=== PATIENT | female | born 1950 | race American Indian/Alaskan Native ===

== ENCOUNTER 2020-06-02 08:49 | Observation (INO) | payer MEDICARE ==
--- NOTE | 2020-06-02 08:54 | Emergency Department Report ---
ED General Adult HPI - General Stated complaint: DIALYSIS ACCESS BLEED Time Seen by Provider: 06/02/20 08:52 - History of Present Illness Initial comments: Patient is a 62-year-old female with history of diabetes and end-stage renal disease on dialysis presents to emergency department for evaluation of 1 hour of bleeding from AV fistula. Patient presents with tourniquet to left upper arm and medics holding pressure, patient losing consciousness on arrival. Patient consequently required my immediate attention. - Related Data Allergies Allergy/AdvReac Type Severity Reaction Status Date / Time iodine Allergy Unknown Verified 06/02/20 11:42 ED Review of Systems ROS: Stated complaint: DIALYSIS ACCESS BLEED Other details as noted in HPI Comment: Unobtainable due to pts medical conditions ED Past Medical Hx - Past Medical History Hx Diabetes: Yes Hx Renal Disease: Yes ED Physical Exam - General Limitations: Altered Mental Status General appearance: lethargic - Head Head exam: Present: atraumatic - Eye Eye exam: Present: normal appearance - ENT ENT exam: Present: normal exam - Neck Neck exam: Present: normal inspection - Respiratory Respiratory exam: Present: normal lung sounds bilaterally - Cardiovascular Cardiovascular Exam: Present: regular rate, other (Hypotensive) - GI/Abdominal GI/Abdominal exam: Present: soft - Rectal Rectal exam: Present: deferred - Extremities Exam Extremities exam: Present: other (Severe bleeding from left AV fistula, dressing in place with pressure held by medics) - Neurological Exam Neurological exam: Present: other (Lethargic) - Psychiatric Psychiatric exam: Present: other (Lethargic) - Skin Skin exam: Present: warm ED Course Vital Signs 06/02/20 06/02/20 06/02/20 08:49 12:31 12:32 Temperature 97.6 F Pulse Rate 69 70 72 Respiratory 12 18 Rate Blood Pressure 96/41 123/55 Blood Pressure 135/62 [Left] O2 Sat by Pulse 100 99 Oximetry 06/02/20 06/02/20 06/02/20 12:46 12:51 13:13 Temperature 97.6 F 98.1 F 97.6 F Pulse Rate 72 70 73 Respiratory 18 18 18 Rate Blood Pressure 134/39 143/61 143/34 Blood Pressure [Left] O2 Sat by Pulse 100 99 100 Oximetry 06/02/20 13:28 Temperature 97.6 F Pulse Rate 70 Respiratory 18 Rate Blood Pressure 159/51 Blood Pressure [Left] O2 Sat by Pulse 100 Oximetry - Reevaluation(s) Reevaluation #1: Pressure dressing immediately applied with Ben wrap, tourniquet left in place, vascular surgery on-call paged immediately. 06/02/20 08:53 Reevaluation #2: 06/02/20 09:00 Ultrasound-guided IV placed in the right antecubital fossa by me. Reevaluation #3: 06/02/20 13:43 Dr. Dao, vascular on-call, calls back at 9:44, states patient is not stable for the OR as labwork is not back, suggests patient be transfused with blood. Repeatedly expresses concern that patient may be hyperkalemic requiring dialysis prior to AV fistula repair. Is again alerted to patient's hemodynamic instability in the context of AV fistula hemorrhage, is alerted to patient having active tourniquet to left arm, states patient needs potassium value and will go to dialysis with tourniquet in place if necessary. Reevaluation #4: 06/02/20 12:00 Patient consented for transfusion of PRBC, FFP; IV Vitamin K ordered. Prior to transfusion, Dr. Dao arrives in ER, and states patient should be brought to OR prior to transfusion. Patient leaves ER for OR at 13:45. - Central Line Placement Right Femoral Consent Obtained: verbal consent, emergent situation Time Out Performed: Yes Patient Placed on Monitor/Pulse Ox: Yes MD Prep: mask, gown, gloves Central Line Prep: Chlorhexidine scrub Local Anesthesia Used: Lidocaine 1% Ultrasound Used for Placement: Yes Central Line Lumen Inserted: triple Central Line Position: good blood return, all ports aspirated, flus, sutured in place with nyl Dressing Applied: Tegaderm Patient Tolerated Procedure: well Complications: none ED Medical Decision Making - Lab Data Result diagrams: 06/02/20 10:23 06/02/20 10:23 Lab Results 06/02/20 06/02/20 06/02/20 Range/Units 10:23 10:23 10:23 WBC 5.7 (4.5-11.0) K/mm3 RBC 2.08 L (3.65-5.03) M/mm3 Hgb 6.8 L (10.1-14.3) gm/dl Hct 20.6 L (30.3-42.9) % MCV 99 H (79-97) fl MCH 33 H (28-32) pg MCHC 33 (30-34) % RDW 17.4 H (13.2-15.2) % Plt Count 120 L (140-440) K/mm3 Lymph % (Auto) 22.0 (13.4-35.0) % [place] % (Auto) 6.5 (0.0-7.3) % Eos % (Auto) 1.7 (0.0-4.3) % Baso % (Auto) 0.8 (0.0-1.8) % Lymph # (Auto) 1.2 (1.2-5.4) K/mm3 [place] # (Auto) 0.4 (0.0-0.8) K/mm3 Eos # (Auto) 0.1 (0.0-0.4) K/mm3 Baso # (Auto) 0.0 (0.0-0.1) K/mm3 Seg Neutrophils % 69.0 (40.0-70.0) % Seg Neutrophils # 3.9 (1.8-7.7) K/mm3 PT 31.9 H (12.2-14.9) Sec. INR 3.07 H (0.87-1.13) Sodium 140 (137-145) mmol/L Potassium 4.4 (3.6-5.0) mmol/L Chloride 102.9 (98-107) mmol/L Carbon Dioxide 30 (22-30) mmol/L Anion Gap 12 mmol/L BUN 29 H (7-17) mg/dL Creatinine 6.9 H (0.6-1.2) mg/dL Estimated GFR 6 ml/min BUN/Creatinine Ratio 4 % Glucose 139 H (65-100) mg/dL Calcium 7.2 L (8.4-10.2) mg/dL Blood Type Antibody Screen Crossmatch 06/02/20 Range/Units 10:23 WBC (4.5-11.0) K/mm3 RBC (3.65-5.03) M/mm3 Hgb (10.1-14.3) gm/dl Hct (30.3-42.9) % MCV (79-97) fl MCH (28-32) pg MCHC (30-34) % RDW (13.2-15.2) % Plt Count (140-440) K/mm3 Lymph % (Auto) (13.4-35.0) % [place] % (Auto) (0.0-7.3) % Eos % (Auto) (0.0-4.3) % Baso % (Auto) (0.0-1.8) % Lymph # (Auto) (1.2-5.4) K/mm3 [place] # (Auto) (0.0-0.8) K/mm3 Eos # (Auto) (0.0-0.4) K/mm3 Baso # (Auto) (0.0-0.1) K/mm3 Seg Neutrophils % (40.0-70.0) % Seg Neutrophils # (1.8-7.7) K/mm3 PT (12.2-14.9) Sec. INR (0.87-1.13) Sodium (137-145) mmol/L Potassium (3.6-5.0) mmol/L Chloride (98-107) mmol/L Carbon Dioxide (22-30) mmol/L Anion Gap mmol/L BUN (7-17) mg/dL Creatinine (0.6-1.2) mg/dL Estimated GFR ml/min BUN/Creatinine Ratio % Glucose (65-100) mg/dL Calcium (8.4-10.2) mg/dL Blood Type O POSITIVE Antibody Screen Negative Crossmatch See Detail Vital Signs 06/02/20 06/02/20 06/02/20 08:49 12:31 12:32 Temperature 97.6 F Pulse Rate 69 70 72 Respiratory 12 18 Rate Blood Pressure 96/41 123/55 Blood Pressure 135/62 [Left] O2 Sat by Pulse 100 99 Oximetry 06/02/20 06/02/20 06/02/20 12:46 12:51 13:13 Temperature 97.6 F 98.1 F 97.6 F Pulse Rate 72 70 73 Respiratory 18 18 18 Rate Blood Pressure 134/39 143/61 143/34 Blood Pressure [Left] O2 Sat by Pulse 100 99 100 Oximetry 06/02/20 13:28 Temperature 97.6 F Pulse Rate 70 Respiratory 18 Rate Blood Pressure 159/51 Blood Pressure [Left] O2 Sat by Pulse 100 Oximetry Critical Care Time: Yes Critical care time in (mins) excluding proc time.: 35 Critical care attestation.: If time is entered above; I have spent that time in minutes in the direct care of this critically ill patient, excluding procedure time. ED Disposition Clinical Impression: Hemorrhage of arteriovenous fistula Disposition: DC-09 OP ADMIT IP TO THIS HOSP Is pt being admited?: Yes Condition: Fair
[2020-06-02 10:35] LABS: Basophils % (Auto) 0.8 % (0.0-1.8); Eosinophils # (Auto) 0.1 K/mm3 (0.0-0.4); Eosinophils % (Auto) 1.7 % (0.0-4.3); Hematocrit 20.6 % (30.3-42.9); Hemoglobin 6.8 gm/dl (10.1-14.3); Lymphocytes # (Auto) 1.2 K/mm3 (1.2-5.4); Mean Corpuscular HGB Conc 33 % (30-34); Mean Corpuscular Volume 99 fl (79-97); Monocytes # (Auto) 0.4 K/mm3 (0.0-0.8); Monocytes % (Auto) 6.5 % (0.0-7.3); Platelet Count 120 K/mm3 (140-440); Red Blood Count 2.08 M/mm3 (3.65-5.03); Red Cell Distribution Width 17.4 % (13.2-15.2)
[2020-06-02 10:44] LABS: INR 3.07 (0.87-1.13)
[2020-06-02] MEDS ORDERED: SODIUM CHLORIDE 0.9% 500 ML 500 ML IV ONE (11:07)
[2020-06-02 11:09] LABS: Calcium 7.2 mg/dL (8.4-10.2)
[2020-06-02] MEDS ORDERED: PHYTONADIONE(ADULT ONLY) 10 MG in SODIUM CHLORIDE 0.9% 50 ML IV ONE (11:35)
--- NOTE | 2020-06-02 11:57 | History and Physical Report ---
History of Present Illness Chief complaint: Her fistula is bleeding History of present illness: 70 YO Female with ESRD on HD(M,W,F), DM, HTN, PVD on therapeutic anticoagulation with Eliquis, CHF presents to ED for evaluation. Patient is lethargic at the time of my evaluation and is unable to provide detailed history. Patient history taken from ED staff, EMS staff. As per staff the patient was in her usual state of health and presented to her routine dialysis center for her scheduled dialysis today. Patient was found to have profuse bleeding from her fistula site and was unable to undergo dialysis. EMS was notified and upon arrival the patient was found to be in distress with active bleeding from her dialysis access site. A tourniquet was placed and the patient was transported to [facility] for further care and evaluation of the aforementioned symptoms. The patient was seen and evaluated in the emergency department. All lab and imaging studies reviewed. The patient was found to have bleeding from her left upper extremity AV fistula site, as well as end-stage renal disease in need of dialysis. Vascular surgery team consulted in ED. Nephrology team consulted in ED. Patient taken to the operating room for surgical intervention as per surgery team. No further history obtainable. No reports of fever, chills, chest pain, palpitation, productive cough, skin rash, recent ill contacts, or known exposure to COVID-19. No prior admission for review. No medication listed at time of admission for reconciliation. Advanced care planning conducted in ED. Past History Past Medical History: diabetes, ESRD, heart failure, hypertension, PVD Past Surgical History: Other (Dialysis access, transmetatarsal amputation) Social history: single. denies: smoking, alcohol abuse, prescription drug abuse Family history: diabetes, hypertension Medications and Allergies Allergies Allergy/AdvReac Type Severity Reaction Status Date / Time iodine Allergy Unknown Verified 06/02/20 11:42 Active Meds: Active Medications Phytonadione 10 mg/ Sodium (Chloride) 51 mls @ 100 mls/hr IV ONCE ONE Stop: 06/02/20 12:05 Review of Systems ROS unobtainable: due to mental status Exam - Constitutional Vitals: Temp Pulse Resp BP Pulse Ox 69 96/41 06/02/20 08:49 06/02/20 08:49 General appearance: Present: mild distress - EENT Eyes: Present: PERRL ENT: hearing intact, clear oral mucosa - Neck Neck: Present: supple, normal ROM - Respiratory Respiratory effort: normal Respiratory: bilateral: CTA - Cardiovascular Heart Sounds: Present: S1 & S2. Absent: rub, click - Extremities Extremities: pulses symmetrical, No edema Peripheral Pulses: within normal limits - Abdominal General gastrointestinal: Present: soft, non-tender, non-distended, normal bowel sounds Female genitourinary: Present: normal - Integumentary Integumentary: Present: clear, warm, dry - Musculoskeletal Musculoskeletal: generalized weakness - Psychiatric Psychiatric: no appropriate mood/affect, no intact judgment & insight - Neurologic Neurologic: CNII-XII intact, no focal deficits, moves all extremities, no gait normal Results - Labs CBC & Chem 7: 06/02/20 10:23 06/02/20 10:23 Labs: Abnormal lab results 06/02/20 06/02/20 06/02/20 Range/Units 10:23 10:23 10:23 RBC 2.08 L (3.65-5.03) M/mm3 Hgb 6.8 L (10.1-14.3) gm/dl Hct 20.6 L (30.3-42.9) % MCV 99 H (79-97) fl MCH 33 H (28-32) pg RDW 17.4 H (13.2-15.2) % Plt Count 120 L (140-440) K/mm3 PT 31.9 H (12.2-14.9) Sec. INR 3.07 H (0.87-1.13) BUN 29 H (7-17) mg/dL Creatinine 6.9 H (0.6-1.2) mg/dL Glucose 139 H (65-100) mg/dL Calcium 7.2 L (8.4-10.2) mg/dL Crossmatch 06/02/20 Range/Units 10:23 RBC (3.65-5.03) M/mm3 Hgb (10.1-14.3) gm/dl Hct (30.3-42.9) % MCV (79-97) fl MCH (28-32) pg RDW (13.2-15.2) % Plt Count (140-440) K/mm3 PT (12.2-14.9) Sec. INR (0.87-1.13) BUN (7-17) mg/dL Creatinine (0.6-1.2) mg/dL Glucose (65-100) mg/dL Calcium (8.4-10.2) mg/dL Crossmatch See Detail Assessment and Plan - Patient Problems (1) Hemorrhage of arteriovenous fistula Current Visit: Yes Status: Acute Qualifiers: Encounter type: initial encounter Qualified Code(s): T82.838A - Hemorrhage due to vascular prosthetic devices, implants and grafts, initial encounter Plan to address problem: Supportive care, patient taken urgently to operating room as per vascular surgery team, further care as per vascular surgery team. (2) End stage renal disease Current Visit: Yes Status: Acute Plan to address problem: Nephrology team consulted in ED, strict I's/O, monitor urine output every shift, avoid nephrotoxic agents, dialysis as per renal team (3) Hypertension Current Visit: Yes Status: Acute Qualifiers: Hypertension type: essential hypertension Qualified Code(s): I10 - Essential (primary) hypertension Plan to address problem: Monitor blood pressure every shift, continue medical management (4) Diabetes Current Visit: Yes Status: Acute Plan to address problem: Sliding-scale insulin therapy, Accu-Chek, consistent help carbohydrate diet, hypoglycemia protocol (5) CHF (congestive heart failure) Current Visit: Yes Status: Acute Qualifiers: Heart failure chronicity: chronic Plan to address problem: Strict I/O, monitor urine output every shift, afterload reduction, daily weight, blood pressure control, supportive care. (6) DVT prophylaxis Current Visit: Yes Status: Acute Plan to address problem: SCD to bilateral lower extremities while in bed, resume anticoagulation postoperatively as per vascular surgery team (7) Advance care planning Current Visit: Yes Status: Acute Plan to address problem: Disease education conducted, patient is full code, +30 minutes.
--- NOTE | 2020-06-02 12:46 | Consultation ---
History of Present Illness - Reason for Consult Consult date: 06/02/20 Bleeding from Left Arm AV Fistula Requesting physician: DIOR MCDOWELL - History of Present Illness The patient is a 70-year-old female with a history of end-stage renal disease who was brought to the emergency department by EMS from her dialysis center. She states she presented to her dialysis center and upon accessing her fistula she began bleeding profusely and EMS was called. She was unable to have dialysis initiated secondary to the bleeding. EMS placed a tourniquet on her arm to control bleeding however prior to EMS arrival her profuse bleeding resulted in hypotension and mental status changes. Upon arrival to the emergency department she was still hypotensive requiring emergent placement of a femoral triple-lumen catheter for fluid resuscitation. She was eventually able to have the tourniquet removed and was found to have cessation of the bleeding. She states that her fistula was created [address] [facility]. She has not had episodes of bleeding of this nature however she has had some episodes of prolonged bleeding. She states she is on Eliquis but is unsure exactly why this was started. She does have a history of peripheral vascular disease and recently underwent an angiogram with stent placement of her right lower extremity for wounds on her right foot that required a transmetatarsal amputation and still is in the process of healing. She has no additional complaints at this time. Past History Past Medical History: CAD, diabetes, ESRD, heart failure, hypertension, PVD Past Surgical History: Other (Pacemaker insertion, left arteriovenous fistula creation, right transmetatarsal amputation, right lower extremity angiogram with stent placement) Social history: no significant social history Medications and Allergies Allergies Allergy/AdvReac Type Severity Reaction Status Date / Time iodine Allergy Unknown Verified 06/02/20 11:42 Review of Systems All systems: negative Exam - Constitutional Vitals: Temp Pulse Resp BP Pulse Ox 97.6 F 72 18 135/62 99 06/02/20 12:32 06/02/20 12:32 06/02/20 12:32 06/02/20 12:32 06/02/20 12:32 General appearance: Present: no acute distress - Neck Neck: Present: supple - Cardiovascular Rhythm: regular - Extremities Extremities: pulses intact (Palpable femoral pulses bilaterally), abnormal (Left arm AV fistula with palpable thrill in the mid fistula and slight pulsatility near the venous outflow, without pseudoaneurysm formation or evidence of ulceration) Extremity abnormal: pulses diminished (Nonpalpable pedal pulses bilaterally), other (Ulceration of the right heel) - Abdominal General gastrointestinal: Present: soft Results - Labs CBC & Chem 7: 06/02/20 10:23 06/02/20 10: Labs: Abnormal lab results 06/02/20 06/02/20 06/02/20 Range/Units 10: 10: 10: RBC 2.08 L (3.65-5.03) M/mm3 Hgb 6.8 L (10.1-14.3) gm/dl Hct 20.6 L (30.3-42.9) % MCV 99 H (79-97) fl MCH 33 H (28-32) pg RDW 17.4 H (13.2-15.2) % Plt Count 120 L (140-440) K/mm3 PT 31.9 H (12.2-14.9) Sec. INR 3.07 H (0.87-1.13) BUN 29 H (7-17) mg/dL Creatinine 6.9 H (0.6-1.2) mg/dL Glucose 139 H (65-100) mg/dL Calcium 7.2 L (8.4-10.2) mg/dL Crossmatch 06/02/20 Range/Units 10:23 RBC (3.65-5.03) M/mm3 Hgb (10.1-14.3) gm/dl Hct (30.3-42.9) % MCV (79-97) fl MCH (28-32) pg RDW (13.2-15.2) % Plt Count (140-440) K/mm3 PT (12.2-14.9) Sec. INR (0.87-1.13) BUN (7-17) mg/dL Creatinine (0.6-1.2) mg/dL Glucose (65-100) mg/dL Calcium (8.4-10.2) mg/dL Crossmatch See Detail Assessment and Plan The patient is a 70-year-old female with a history of end-stage renal disease who presented with bleeding from her left arm arteriovenous fistula. She initially had a tourniquet to control the bleeding however the bleeding is now controlled. She is in need of a fistulogram with possible intervention to relieve outflow stenosis. Additionally the patient has a history of peripheral vascular disease with angioplasty and stenting of her right lower extremity about 3 months ago with a poorly healing wound. She is in need of a arterial duplex to evaluate her arterial flow. She will be scheduled for the fistulogram today. She has been given the risk, benefits, and alternative procedures and consented to the procedure.
[2020-06-02] MEDS ORDERED: HEPARIN/NS 5000 UNIT/500ML 1,000 ML IR ONE (13:02)
[2020-06-02] MEDS ORDERED: HEPARIN 10,000 UNITS/10 ML VIAL ONE (13:02)
[2020-06-02] MEDS ORDERED: SODIUM CHLORIDE 0.9% 500 ML 500 ML ONE ×2 (13:03→13:09)
[2020-06-02] MEDS ORDERED: methylPREDNISolone Sod Succinate 125 MG/2 ML INJ ONE (13:50)
[2020-06-02] MEDS ORDERED: diphenhydrAMINE 50 MG/ML VIAL ONE (13:50)
[2020-06-02] MEDS ORDERED: FAMOTIDINE 20 MG/2 ML INJ IV ONE (13:54)
[2020-06-02] MEDS: fentaNYL 100 MCG/2 ML INJ ONE ×2 (14:21→14:25)
[2020-06-02] MEDS: MIDAZOLAM 2 MG/2 ML INJ ONE ×2 (14:21→14:25)
[2020-06-02] MEDS: LIDOCAINE (2%) 20 MG/1 ML VIAL 20 ML MDV INFILTRATI ONE ×2 (14:22→14:28)
[2020-06-02] MEDS ORDERED: ACETAMINOPHEN 325 MG TAB PO PRN (15:00)
[2020-06-02] MEDS ORDERED: ONDANSETRON 4 MG/2 ML INJ IV PRN (15:00)
--- NOTE | 2020-06-02 15:12 | Operative Report ---
Operative Report Operative Report: Date of Procedure: 06/02/2020 Pre-operative Diagnosis: Complications of Dialysis Access Post-operative Diagnosis: Same Procedure(s): 1. Access Left Arm AV Fistula with 7 Cymraes Sheath Venous 2. Diagnostic Fistulogram with Central Venogram and Arterial Reflux 3. Angioplasty of Left Arm AV Fistula with 8 x 100 [place] Balloon 4. Radiologic Supervision with Interpretation 5. Monitored Moderate Sedation (Total Anesthesia Time: 34 Minutes) Surgeon: Roman Dao M.D. [employer] Recruiter: None Anesthesia: Local/Monitored Moderate Sedation Total Anesthesia Time: 34 Minutes EBL: Minimal Counts: Correct Complications: None Condition: Stable Specimen: None Indication: The patient is a 70-year-old female with a history of end-stage renal disease who is currently on hemodialysis through a left arm arteriovenous fistula. She presented with bleeding from the fistula that resulted in hypotension requiring emergent placement of a central line and a transfusion of packed red blood cells. She is in need of a diagnostic fistulogram with possible intervention. She was given the risk, benefits, and alternative procedures and consented to the procedure. Angiographic Findings: The diagnostic fistulogram revealed a stent within the inflow of the fistula with several areas of stent fracture. There was approximately 85% stenosis in the fistula just distal to the cannulation zone. There were several other areas of stenosis ranging from 40 to 50% stenosis in the venous outflow. The central venous system was patent without evidence of flow-limiting stenosis. The arterial reflux revealed that the stent was placed approximately 2 cm from the arterial anastomosis and appeared to be oversized for the fistula in this area. The arterial anastomosis appeared to be patent without evidence of flow-limiting stenosis. Description of Procedure: The patient was brought to the [employer] and laid in supine position. After a timeout was performed the patient was sedated and her left arm was prepped and draped in normal sterile fashion. Lidocaine was used anesthetize the skin and soft tissue overlying the fistula near the arterial inflow and a 21-gauge micropuncture needle was used to access the fistula towards the venous outflow. A 0.08 micropuncture wire was advanced into the fistula and after removing the needle a 7 Cymraes sheath was placed by Seldinger technique. A diagnostic fistulogram with central venogram was performed with the previously described findings. Pressure was held on the fistula to occlude flow and without contrast to reflux into the arterial inflow with the results that were previously described. A 0.035 Bentson wire was advanced through the fistula and into the central venous system then angioplasty of the previously described areas of stenosis was performed with an 8 x 100 [place] balloon. This resulted in less than 15% residual stenosis throughout the fistula. At this point I removed the balloon and wire and a 2-0 Ethilon in slipknot fashion was used to close the entry site after removing the sheath. A sterile dressing was then applied to the entry site and the patient was transported to the recovery area in stable condition.
--- NOTE | 2020-06-02 19:09 | Vascular Lab Report ---
DUPLEX DOPPLER LOWER EXTREMITY ARTERIAL, BILATERAL INDICATION / CLINICAL INFORMATION: PVD with Right Foot Ulcer. TECHNIQUE: Arterial duplex examination of both lower extremities performed using B-mode, color flow and spectral Doppler assessment. FINDINGS: RIGHT: Common Femoral Artery: PSV 89 cm/sec. Triphasic waveform. Proximal SFA: PSV 159 cm/sec. Biphasic waveform. Mid SFA contains stent: PSV 68 cm/sec. Biphasic waveform. Distal SFA contains stent: PSV 55 cm/sec. Biphasic waveform. Popliteal artery: PSV 60 cm/sec. Biphasic waveform. Posterior tibial artery: PSV 62 cm/sec. Triphasic waveform. Dorsalis Pedis Artery: PSV 22 cm/sec. Monophasic waveform. LEFT: Common Femoral Artery: PSV 71 cm/sec. Biphasic waveform. Proximal SFA: PSV 79 cm/sec. Biphasic waveform. Mid SFA: PSV 80 cm/sec. Biphasic waveform. Distal SFA: PSV 59 cm/sec. Biphasic waveform. Popliteal artery: PSV 80 cm/sec. Biphasic waveform. Posterior tibial artery: PSV 63 cm/sec. Biphasic waveform. Dorsalis Pedis Artery: PSV 68 cm/sec. Biphasic waveform. Right AALIYAH: 1.07. Left AALIYAH: NC IMPRESSION: 1. Calcified bilateral lower extremity arteries with right SFA stent and distal right crural peripher al vascular disease with monophasic waveform right dorsalis pedis artery Ankle-Brachial Index (AALIYAH): - Calcified arteries > 1.4 - Normal = 0.9-1.4 - Mild PAD = 0.7-0.89 - Moderate PAD = 0.51-0.69 - Severe PAD < 0.5 Doppler Waveform: - Triphasic is normal. - Biphasic is abnormal if clear transition from triphasic signal along vascular tree. - Monophasic is abnormal. Signer Name: Delmer Perry MD Signed: 06/02/2020 7:04 PM Workstation Name: [facility] [id number]
[2020-06-03 05:52] LABS: Basophils % (Auto) 0.2 % (0.0-1.8); Hematocrit 24.1 % (30.3-42.9); Hemoglobin 8.1 gm/dl (10.1-14.3); Lymphocytes # (Auto) 0.7 K/mm3 (1.2-5.4); Lymphocytes % (Auto) 13.5 % (13.4-35.0); Mean Corpuscular HGB Conc 34 % (30-34); Mean Corpuscular Volume 97 fl (79-97); Monocytes % (Auto) 0.9 % (0.0-7.3); Platelet Count 146 K/mm3 (140-440); Red Blood Count 2.48 M/mm3 (3.65-5.03); Red Cell Distribution Width 17.7 % (13.2-15.2)
[2020-06-03 06:13] LABS: Calcium 8.3 mg/dL (8.4-10.2)
--- NOTE | 2020-06-03 08:16 | Progress Note ---
Assessment and Plan Assessment and plan: 70 YO Female with ESRD on HD(M,W,F), DM, HTN, PVD on therapeutic anticoagulation with Eliquis, CHF presents to ED for evaluation. Patient is lethargic at the time of my evaluation and is unable to provide detailed history. Patient history taken from ED staff, EMS staff. As per staff the patient was in her usual state of health and presented to her routine dialysis center for her scheduled dialysis today. Patient was found to have profuse bleeding from her fistula site and was unable to undergo dialysis. EMS was notified and upon arrival the patient was found to be in distress with active bleeding from her dialysis access site. A tourniquet was placed and the patient was transported to [facility] for further care and evaluation of the aforementioned symptoms. The patient was seen and evaluated in the emergency department. All lab and imaging studies reviewed. The patient was found to have bleeding from her left upper extremity AV fistula site, as well as end-stage renal disease in need of dialysis. Vascular surgery team consulted in ED. Nephrology team consulted in ED. Patient taken to the operating room for surgical intervention as per surgery team. No further history obtainable. No reports of fever, chills, chest pain, palpitation, productive cough, skin rash, recent ill contacts, or known exposure to COVID-19. No prior admission for review. No medication listed at time of admission for reconciliation. Advanced care planning conducted in ED. 06/03: Patient clinically improved today following management of stenosis by vascular surgeon. She is anxious to be discharged today but will await nephrology evaluation as she has missed some dialysis. Mental status has reso lved anticipate discharge following dialysis. Mild hyperkalemia noted. Patient received FFP due to bleeding diastasis and also packed red blood cell with improvement of anemia. (1) Hemorrhage of arteriovenous fistula Current Visit: Yes Status: Acute Qualifiers: Encounter type: initial encounter Qualified Code(s): T82.838A - Hemorrhage due to vascular prosthetic devices, implants and grafts, initial encounter Plan to address problem: Supportive care, patient taken urgently to operating room as per vascular surgery team, further care as per vascular surgery team. (2) End stage renal disease Current Visit: Yes Status: Acute Plan to address problem: Nephrology team consulted in ED, strict I's/O, monitor urine output every shift, avoid nephrotoxic agents, dialysis as per renal team Nephrology consulted (3) Hypertension Current Visit: Yes Status: Acute Qualifiers: Hypertension type: essential hypertension Qualified Code(s): I10 - Essential (primary) hypertension Plan to address problem: Monitor blood pressure every shift, continue medical management (4) Diabetes Current Visit: Yes Status: Acute Plan to address problem: Sliding-scale insulin therapy, Accu-Chek, consistent help carbohydrate diet, hypoglycemia protocol (5) CHF (congestive heart failure) Current Visit: Yes Status: Acute Qualifiers: Heart failure chronicity: chronic Plan to address problem: Strict I/O, monitor urine output every shift, afterload reduction, daily weight, blood pressure control, supportive care. (6) severe anemia secondary to bleeding AV fistula (7) DVT prophylaxis Current Visit: Yes Status: Acute Plan to address problem: SCD to bilateral lower extremities while in bed, resume anticoagulation postoperatively as per vascular surgery team (8) Advance care planning Current Visit: Yes Status: Acute Plan to address problem: Disease education conducted, patient is full code, +30 minutes. History Interval history: Patient seen and examined no new complaints. Bleeding has stopped. Mental status improved Hospitalist Physical - Physical exam Narrative exam: VITAL SIGNS: Reviewed. GENERAL: The patient appears normally developed, Vital signs as documented. HEAD: No signs of head trauma. EYES: Pupils are equal. Extraocular motions intact. EARS: Hearing grossly intact. MOUTH: Oropharynx is normal. NECK: No adenopathy, no JVD. CHEST: Chest with clear breath sounds bilaterally. No wheezes, rales, or rhonchi. CARDIAC: Regular rate and rhythm. S1 and S2, without murmurs, gallops, or rubs. VASCULAR: Left upper extremity AV fistula. No drainage noted. No bleeding. No tenderness or warmth no Edema. Peripheral pulses normal and equal in all extremities. ABDOMEN: Soft, non tender and non distended. No rebound or guarding, and no masses palpated. Bowel Sounds normal. MUSCULOSKELETAL: Good range of motion of all major joints. Extremities without clubbing, cyanosis or edema. NEUROLOGIC EXAM: Alert and oriented x 3 No focal sensory or strength deficits. Speech normal. Follows commands. PSYCHIATRIC: Mood normal. SKIN: detail exam as documented in skin assessment - Constitutional Vitals: Temp Pulse Resp BP Pulse Ox 98.4 F 70 20 119/37 99 06/03/20 06:47 06/03/20 06:47 06/03/20 06:47 06/03/20 06:47 06/03/20 06:47 General appearance: Present: mild distress Results - Labs CBC & Chem 7: 06/03/20 05:03 06/03/20 04:00 Labs: Laboratory Last Values WBC 4.8 K/mm3 (4.5-11.0) 06/03/20 05:03 RBC 2.48 M/mm3 (3.65-5.03) L 06/03/20 05:03 Hgb 8.1 gm/dl (10.1-14.3) L 06/03/20 05:03 Hct 24.1 % (30.3-42.9) L 06/03/20 05:03 MCV 97 fl (79-97) 06/03/20 05:03 MCH 33 pg (28-32) H 06/03/20 05:03 MCHC 34 % (30-34) 06/03/20 05:03 RDW 17.7 % (13.2-15.2) H 06/03/20 05:03 Plt Count 146 K/mm3 (140-440) 06/03/20 05:03 Lymph % (Auto) 13.5 % (13.4-35.0) 06/03/20 05:03 [place] % (Auto) 0.9 % (0.0-7.3) 06/03/20 05:03 Eos % (Auto) 0.0 % (0.0-4.3) 06/03/20 05:03 Baso % (Auto) 0.2 % (0.0-1.8) 06/03/20 05:03 Lymph # (Auto) 0.7 K/mm3 (1.2-5.4) L 06/03/20 05:03 [place] # (Auto) 0.0 K/mm3 (0.0-0.8) 06/03/20 05:03 Eos # (Auto) 0.0 K/mm3 (0.0-0.4) 06/03/20 05:03 Baso # (Auto) 0.0 K/mm3 (0.0-0.1) 06/03/20 05:03 Seg Neutrophils % 85.4 % (40.0-70.0) H 06/03/20 05:03 Seg Neutrophils # 4.1 K/mm3 (1.8-7.7) 06/03/20 05:03 PT 31.9 Sec. (12.2-14.9) H 06/02/20 10:23 INR 3.07 (0.87-1.13) H 06/02/20 10:23 Sodium 139 mmol/L (137-145) 06/03/20 04:00 Potassium 5.5 mmol/L (3.6-5.0) H D 06/03/20 04:00 Chloride 100.2 mmol/L (98-107) 06/03/20 04:00 Carbon Dioxide 30 mmol/L (22-30) 06/03/20 04:00 Anion Gap 14 mmol/L 06/03/20 04:00 BUN 41 mg/dL (7-17) H 06/03/20 04:00 Creatinine 8.1 mg/dL (0.6-1.2) H 06/03/20 04:00 Estimated GFR 6 ml/min 06/03/20 04:00 BUN/Creatinine Ratio 5 % 06/03/20 04:00 Glucose 163 mg/dL (65-100) H 06/03/20 04:00 Calcium 8.3 mg/dL (8.4-10.2) L D 06/03/20 04:00 Blood Type O POSITIVE 06/02/20 10:23 Antibody Screen Negative 06/02/20 10:23 Crossmatch See Detail 06/02/20 10:23 [place]/IV: IV Catheter Type [Right Leg] Triple Lumen Cath Active Medications - Current Medications Current Medications: Generic Name Dose Route Start Last Admin Trade Name Freq PRN Reason Stop Dose Admin Acetaminophen 650 mg 06/02/20 15:00 Acetaminophen 325 Mg Tab PO Q4H PRN Pain MILD(1-3)/Fever >100.5/GIB[place]ONS Ondansetron HCl 4 mg 06/02/20 15:00 Ondansetron 4 Mg/2 Ml Inj IV Q8H PRN Nausea And Vomiting Sodium Chloride 10 ml 06/02/20 22:00 Sodium Chloride 0.9% 10 Ml Flush Syringe IV BID SPARKLE Sodium Chloride 10 ml 06/02/20 15:00 Sodium Chloride 0.9% 10 Ml Flush Syringe IV PRN PRN LINE FLUSH
[2020-06-03] MEDS ORDERED: SODIUM CHLORIDE 0.9% 100 ML IV PRN (08:36)
--- NOTE | 2020-06-03 13:47 | Consultation ---
History of Present Illness - Reason for Consult Consult date: 06/03/20 end stage renal disease, hyperkalemia - History of Present Illness The patient is a 70 YO female with history significant for DM type 2, HTN, PVD on therapeutic anticoagulation with Eliquis, CHF and ESRD on HD(M,W,F) who pre sented to [facility] ED 06/02 from the outpatient hemodialysis center with profuse bleeding from her fistula site. EMS found her with active bleeding from her dialysis access site and a tourniquet was placed and the patient was transported to the ED In the ED Vascular surgery team consulted. Patient subsequently underwent fistulogram and angioplasty. Patient received partial treatment yesterday. Nephrology was consulted for treatment of ESRD. Past History Past Medical History: diabetes, ESRD, heart failure, hypertension, PVD Past Surgical History: Other (Dialysis access, transmetatarsal amputation) Social history: single. denies: smoking, alcohol abuse, prescription drug abuse Family history: diabetes, hypertension Medications and Allergies Allergies Allergy/AdvReac Type Severity Reaction Status Date / Time iodine Allergy Unknown Verified 06/02/20 11:42 Active Meds: Active Medications Acetaminophen (Acetaminophen 325 Mg Tab) 650 mg PO Q4H PRN PRN Reason: Pain MILD(1-3)/Fever >100.5/[place] Sodium Chloride (Nacl 0.9%) 100 mls @ 999 mls/hr IV MARZENA PRN PRN Reason: Hypotension Ondansetron HCl (Ondansetron 4 Mg/2 Ml Inj) 4 mg IV Q8H PRN PRN Reason: Nausea And Vomiting Sodium Chloride (Sodium Chloride 0.9% 10 Ml Flush Syringe) 10 ml IV BID SPARKLE Sodium Chloride (Sodium Chloride 0.9% 10 Ml Flush Syringe) 10 ml IV PRN PRN PRN Reason: LINE FLUSH Review of Systems Constitutional: no weight loss, no weight gain, no fever, no chills Breasts: deferred Cardiovascular: high blood pressure, no chest pain, no orthopnea, no edema, no syncope, no shortness of breath Respiratory: no cough, no shortness of breath Gastrointestinal: no abdominal pain, no nausea, no vomiting, no diarrhea, no melena Integumentary: no rash Exam - Vital Signs Vital signs: Vital Signs Pulse BP 69 96/41 06/02/20 08:49 06/02/20 08:49 Results - Lab Results 06/03/20 05:03 06/03/20 04:00 Most recent lab results Calcium 8.3 mg/dL (8.4-10.2) L D 06/03/20 04:00 Assessment and Plan 1. ESRD: Patient with known h/o ESRD on maintenance hemodialysis, TTS schedule. Last outpatient hemodialysis was on 06/02, unable to complete HD due to bleeding fistula. Hemodialysis: 06/03. 2. FEN: Hyperkalemia, HD today. Monitor lytes and volume status. 3. Malfunctioning AVF: Presented with bleeding AVF. S/p fistulogram and angioplasty. Able to use AVF. 4. Anemia, POA: 2/2 bleeding and ESRD. S/p PRBC. Epogen. 5. HTN: BP is controlled. Continue home meds. 6. DM-2. 7. PVD. Subjective: Patient was seen and examined at the bedside. Doing ok. Examination: General appearance: well-developed, well-nourished, appears stated age, not in distress HEENT: ATNC, hearing intact Neck: supple Respiratory: Clear to Ascultation Cardiology: regular, S1S2, no murmur Abdomen: obese, normoactive bowel sounds, not tender, not distended Integumentary: no rash, warm and dry Neurologic: no asterixis, alert and oriented x3 Ext: no edema, R TMA Hemodialysis access: L arm AVF
[2020-06-03 14:52] LABS: Hepatitis B Surface Antigen Non-Reactive (Negative); Hepatitis C Virus Antibody Non-Reactive (NonReactive)
[2020-06-03 17:01] VITALS: BP 125/58
--- NOTE | 2020-06-03 18:14 | Event Note ---
Date: 06/03/20 Reviewed arterial duplex. Monophasic flow in the right DP with poorly healing TMA and heal ulcer. Will need intervention but can be performed as an outpatient. Have given her a card and recommended that she follow up in 2 weeks.
== END 2020-06-03 18:13 | disposition home or self-care (01) ==
LOC: ED 08:49 → 4A 14:26 → INTOOBSV 14:26 → 4A 15:53
PROVIDERS: ADMIT Internal Medicine; ATTEND Internal Medicine
DX: T82.838A Hemorrhage due to vascular prosthetic devices, implants and grafts, initial encounter (principal); I13.2 Hypertensive heart and chronic kidney disease with heart failure and with stage 5 chronic kidney disease, or end stage renal disease; I50.9 Heart failure, unspecified; N18.6 End stage renal disease; I73.9 Peripheral vascular disease, unspecified; I25.10 Atherosclerotic heart disease of native coronary artery without angina pectoris; D64.9 Anemia, unspecified; E87.5 Hyperkalemia; E11.22 Type 2 diabetes mellitus with diabetic chronic kidney disease; Z99.2 Dependence on renal dialysis; Z98.890 Other specified postprocedural states; Z79.899 Other long term (current) drug therapy
CPT/HCPCS: 36415; 36902; 80048; 80074; 82962; 85025; 85610; 86850; 86900; 86901; 86920; 93922; 93925; 96365; 99291; C1725; C1769; C1894; G0378; J1200; J1644; J2250; J2930; J3010; J3430; J7040; P9016; P9017; Q9967

== ENCOUNTER 2021-03-16 06:09 | Day surgery (SDC) | payer MEDICARE ==
[~2021-03-16 06:09] MED LIST: MIDAZOLAM 2 MG/2 ML INJ IV NR; SODIUM CHLORIDE 0.9% 1000 ML 1,000 ML IV SCH; ceFAZolin/STERILE WATER 2 GM/20 ML SYRINGE IV NR; fentaNYL 100 MCG/2 ML INJ IV PRN
[2021-03-16] MEDS ORDERED: BACTERIOSTATIC SODIUM CHLORIDE 0.9% 30 ML VIAL INFILTRATI ONE (06:46)
[2021-03-16 07:33] LABS: Calcium 9.4 mg/dL (8.4-10.2)
[2021-03-16] MEDS ORDERED: HEPARIN 5,000 UNIT/1 ML VIAL ONE (07:41)
[2021-03-16] MEDS ORDERED: HEPARIN 10,000 UNITS/10 ML VIAL ONE (07:41)
[2021-03-16] MEDS ORDERED: SODIUM CHLORIDE 0.9% 250ML 250 ML ONE (07:42)
[2021-03-16] MEDS ORDERED: SODIUM CHLORIDE 0.9% 500 ML 500 ML ONE (07:42)
[2021-03-16] MEDS ORDERED: LIDOCAINE 1%/EPINEPHRINE 1:100,000 VIAL (20 ML) INFILTRATI ONE (07:43)
[2021-03-16] MEDS ORDERED: BUPIVACAINE/PF (0.5%) 5 MG/1 ML 30 ML VIAL INFILTRATI ONE ×2 (07:43→09:37)
--- NOTE | 2021-03-16 07:50 | Anesthesia Consultation ---
Anesthesia Consult and Med Hx Date of service: 03/16/21 - Airway Anesthetic Teeth Evaluation: Good ROM Head & Neck: Adequate Mental/Hyoid Distance: Adequate Mallampati Class: Class II Intubation Access Assessment: Probably Good - Pre-Operative Health Status ASA Pre-Surgery Classification: ASA3 Proposed Anesthetic Plan: General - Pulmonary Hx Smoking: No Hx Respiratory Symptoms: No Hx Pneumonia: Yes (COVID PNA 01/2021 w/ hospitalization (no vent). Symptoms resolved.) - Cardiovascular System Hx Hypertension: Yes (prior hx. Now on midodrine TID.) Hx Heart Attack/AMI: No Hx Percutaneous Transluminal Coronary Angioplasty (PTCA): No Hx Cardia Arrhythmia: Yes Hx Pacemaker: Yes Hx Internal Defibrillator: No Hx Peripheral Vascular Disease: Yes - Central Nervous System CVA: Yes (2010) - Endocrine Hx End Stage Renal Disease: Yes (last HD 03/15/21) Hx Liver Disease: No Hx Insulin Dependent Diabetes: Yes Hx Hypothyroidism: Yes - Hematic Hx Anemia: Yes - Additional Comments Anesthesia Medical History Comments: No hx anesthetic complications.
--- NOTE | 2021-03-16 07:50 | Anesthesia Day of Surgery ---
Anesthesia Day of Surgery - Day of Surgery Patient Examined: Yes Patient H&P Reviewed: Yes Patient is NPO: Yes
[2021-03-16] MEDS ORDERED: ONDANSETRON 4 MG/2 ML INJ IV PRN (07:51)
[2021-03-16] MEDS ORDERED: rifAMPin 600 MG VIAL ONE (07:54)
[2021-03-16] MEDS ORDERED: dexAMETHasone 20 MG/5 ML VIAL ONE (07:54)
[2021-03-16] MEDS ORDERED: LIDOCAINE MPF (2%) 20 MG/1 ML VIAL 5 ML ONE (07:54)
[2021-03-16] MEDS ORDERED: propofoL 200 MG/20 ML VIAL IV ONE (07:55)
[2021-03-16] MEDS ORDERED: AMIODARONE 200 MG TAB PO SCH (08:00)
[2021-03-16] MEDS ORDERED: fentaNYL 100 MCG/2 ML INJ IV PRN (08:00)
[2021-03-16] MEDS ORDERED: MIDODRINE 5 MG TAB PO ONE (08:00)
--- NOTE | 2021-03-16 08:39 | Short Stay Summary ---
Short Stay Documentation Date of service: 03/16/21 Narrative H&P: The patient is a 70-year-old female with a history of end-stage renal disease who is currently on hemodialysis through a left arm arteriovenous access. They have difficulty cannulating the access secondary to stents extending from the arterial inflow of the access throughout the fistula. She requires frequent fistulograms to maintain the access however this does not assist with ease of cannulation. The patient is in need of ligation of her current access and creation of a left arm brachial artery to axillary vein AV graft. She will require placement of a permacath until her graft has healed and ready for access. She has been given the risk, benefits, and alternative procedures and consented to the procedure. - History Past Medical History: CAD, dialysis, heart failure, hypertension, hyperlipidemia, PVD Past Surgical History: Other (Pacemaker insertion, right transmetatarsal amputation, endovascular revascularization of her right lower extremity, left arm arteriovenous fistula creation, amputation of left first toe, endovascular revascularization of left lower extremity) Social history: no significant social history - Allergies and Medications Current Medications: Allergies iodine Allergy (Verified 03/11/21 15:55) Unknown Home Medications Medication Instructions Recorded Confirmed Last Taken Type Amiodarone [Cordarone 200 MG TAB] 200 mg PO DAILY #30 tablet 09/16/20 03/11/21 Unknown Rx Apixaban [Eliquis] 5 mg PO Q12HR #60 tablet 09/16/20 03/11/21 Unknown Rx AtorvaSTATin [Lipitor] 40 mg PO QHS #30 tablet 09/16/20 03/11/21 Unknown Rx Clopidogrel [Plavix] 75 mg PO QDAY #30 tablet 09/16/20 03/11/21 Unknown Rx Gabapentin 300 mg PO DAILY 03/11/21 03/11/21 Unknown History Midodrine [Proamatine] 5 mg PO TID 03/11/21 03/11/21 Unknown History Sevelamer Carbonate [Renvela] 800 mg PO TIDWM 03/11/21 03/11/21 Unknown History traMADoL [Ultram 50 MG tab] 50 mg PO Q6H PRN 03/11/21 03/11/21 Unknown History Active Medications Amiodarone HCl (Amiodarone 200 Mg Tab) 200 mg PO BID SPARKLE Cefazolin Sodium (Cefazolin/Sterile Water 2 Gm/20 Ml Syringe) 2 gm IV PREOP NR Stop: 03/16/21 23:59 Fentanyl (Fentanyl 100 Mcg/2 Ml Inj) 50 mcg IV Q5MIN PRN PRN Reason: Pain , Severe (7-10) Stop: 03/16/21 23:00 Sodium Chloride (Nacl 0.9% 1000 Ml) 1,000 mls @ 42 mls/hr IV DIRECT SPARKLE Stop: 03/16/21 23:59 Ondansetron HCl (Ondansetron 4 Mg/2 Ml Inj) 4 mg IV ONCE PRN PRN Reason: Nausea And Vomiting Stop: 03/16/21 10:00 - Brief post op/procedure progress note Date of procedure: 03/16/21 Pre-op diagnosis: Complications of Dialysis Access Post-op diagnosis: same Procedure: 1. Ligation of Left Brachiobasilic Arteriovenous Fistula 2. Creation of Left Brachial Artery to Left Axillary Vein Arteriovenous Graft with 6 mm Bovine Artegraft 3. Ultrasound-Guided Access Left Internal Jugular Vein 4. Placement of Bard 27 cm Glidepath Permacath 5. Radiologic Supervision with Interpretation Anesthesia: EDWARD Surgeon: KATHY SPAIN Estimated blood loss: 50-100ml Pathology: none Condition: stable - Disposition Condition at discharge: Good Disposition: 01 HOME / SELF CARE / HOMELESS Short Stay Discharge Plan Activity: other (No evidence of the wound left arm for 2 weeks.) Wound: other (Okay to wash the left arm wounds with soap and water but do not soak in water for 2 weeks. Do not shower or get permacath wet.) Special Instructions: other (Use left internal jugular permacath for dialysis until cleared by vascular surgeon to use the left arm AV graft for dialysis.) Follow up with: KATHY SPAIN MD [Staff Physician] - 14 Days Prescriptions: HYDROcodone/APAP 7.5-325 [[place] 7.5/325] 1 each PO Q6HR PRN #40 tablet PRN Reason: Pain
[2021-03-16] MEDS ORDERED: HEPARIN 10,000 UNITS/10 ML VIAL IR ONE (09:38)
[2021-03-16] MEDS ORDERED: SODIUM CHLORIDE 0.9% 250 ML IVPB IR ONE (09:39)
[2021-03-16] MEDS ORDERED: rifAMPin 600 MG VIAL IV ONE (09:40)
[2021-03-16] MEDS ORDERED: SODIUM CHLORIDE 0.9% IRR 1,500 ML BOTTLE IR ONE (09:40)
[2021-03-16] MEDS ORDERED: SODIUM CHLORIDE 0.9% 500 ML IVPB IRRIGATION ONE (09:41)
[2021-03-16 09:49] LABS: Hematocrit 29.3 % (30.3-42.9); Hemoglobin 9.8 gm/dl (10.1-14.3); Mean Corpuscular HGB Conc 34 % (30-34); Mean Corpuscular Volume 101 fl (79-97); Platelet Count 180 K/mm3 (140-440); Red Cell Distribution Width 17.6 % (13.2-15.2)
[2021-03-16] MEDS ORDERED: BUPIVACAINE/PF (0.5%) 5 MG/1 ML 10 ML VIAL INFILTRATI ONE (10:07)
[2021-03-16] MEDS ORDERED: PHENYLEPHRINE/NS 1,000 MCG/10 ML SYRINGE (OR USE) IV ONE (10:07)
[2021-03-16] MEDS ORDERED: HEPARIN 5,000 UNIT/1 ML VIAL SUB-Q ONE (11:16)
[2021-03-16] MEDS ORDERED: DEXTROSE 50% IN WATER (25GM) 50 ML SYRINGE IV SCH (11:30)
--- NOTE | 2021-03-16 11:54 | Fluoroscopy Report ---
FL central venous dev plct Technique: Intraoperative fluoroscopic guidance was provided. Fluoroscopy time: 1.2 minutes. Fluoroscopy images: 1. Findings/Impression: Intraoperative fluoroscopic guidance for left IJ central venous catheter placeme nt. Please see procedure report for further details. Signer Name: Marcos Summers MD Signed: 03/16/2021 11:49 AM Workstation Name: [email or web address]
[2021-03-16] MEDS ORDERED: DEXTROSE 50% IN WATER (25GM) 50 ML SYRINGE IV ONE (12:07)
--- NOTE | 2021-03-16 12:14 | Operative Report ---
Operative Report Operative Report: Date of procedure: 03/16/2021 Pre-operative diagnosis: Complications of Dialysis Access Post-operative diagnosis: Same Procedure(s): 1. Ligation of Left Brachial Basilic Arteriovenous Fistula 2. Creation of Left Brachial Artery to Axillary Vein AV Graft with 6 mm Bovine Graft Artergraft 3. Ultrasound-Guided Access Left Internal Vein 4. Placement of 27 cm GlidePath Permacath 5. Radiologic Supervision with Interpretation Surgeon: Roman Dao MD Shopper Marketing Manager: None Anesthesia: General Endotracheal Anesthesia EBL: Minimal Counts: Correct Complications: None Condition: Stable Findings: Successful Creation of Left Arm AV Graft with Palpable Thrill and Palpable Radial Pulse at the Completion of the Case. The permacath was inserted with the distal tip in the right atrium and no evidence of pneumothorax at the completion of the case. Both ports easily aspirated and flushed. Specimen: None Indication: The patient is a 70-year-old female with a history of end-stage renal disease who is on hemodialysis through a left brachiobasilic arteriovenous fistula. The fistula had stents extending from the arterial anastomosis to the venous outflow and required frequent intervention secondary to difficult cannulation. She is in need of ligation of the fistula with creation of an arteriovenous graft to assist with ease of cannulation. She will also require placement of a permacath for use until the graft is ready for cannulation. She has been given the risk, benefits, and alternative procedures and has consented to the procedure. Description of Procedure: The patient was brought to the operating room and laid in supine position. After timeout was performed general endotracheal anesthesia was achieved and the left arm was prepped and draped in normal sterile fashion. A longitudinal incision was created on the medial aspect of the arm centered over the arterial anastomosis of her brachiobasilic fistula and sharp dissection was used to carry that incision down to the anastomosis. The brachial artery proximal to and distal to the anastomosis was dissected circumferentially and then the anastomosis was dissected circumferentially. The brachial artery both proximal distal to the anastomosis were controlled with Vesseloops and then the artery was clamped with angled DeBakey clamps both proximal distal to the anastomosis and curved Mayos were used to transect the fistula off of the anastomosis, after clamping the fistula. I then ligated the fistula using multiple 2-0 silk ties. A second incision was created in longitudinal fashion on the medial aspect of the arm just distal to the axillary crease and carried down to the axillary vein using sharp dissection. Axillary vein was dissected out circumferentially and controlled with a vessel loop. I then used a Anahy-Wick tunneler to tunnel from the brachial artery incision to the axillary vein incision and then pulled an 6 mm bovine through the tunnel. I infused with heparinized saline to ensure that it was not twisted or kinked. I put the brachial artery vessel loops on tension controlling the flow and then created an arteriotomy using an 11 blade and Serna scissors. I beveled the graft and created an end-to-side anastomosis using 6-0 Prolene running fashion. I clamped the graft just proximal to the anastomosis and then released the vessel loops restoring flow in the brachial artery. I placed quick clot in incision to achieve hemostasis. I cut the proximal end of the graft to the appropriate length and beveled the graft in preparation for a venous anastomosis. I controlled the axillary vein a Satinsky clamp and created a venotomy using an 11 blade and Serna scissors. I created an end to side anastomosis using a 6-0 Prolene in running fashion. Prior to completing the anastomosis I flushed the graft to ensure there was no thrombus and then completed the anastamosis. I released all clamps allowing flow into the AV graft which had an excellent thrill. I packed the wound with quick clot to achieve hemostasis. I closed both wounds in 2 layers using 3-0 Vicryl in running fashion in the deep dermal layer and 4-0 Monocryl in running fashion the subcuticular layer. I dressed both wounds with Dermabond. The sterile field was then broken and the patient's neck and chest were then prepped and draped in sterile fashion. Ultrasound was used to identify the right internal jugular vein and the overlying skin and soft tissue was anesthetized with lidocaine. An 11 blade was used to make a small stab incision and a 21-gauge micropuncture needle was used with ultrasound guidance to enter the right internal jugular vein. A 0.018 micropuncture wire was advanced into the inferior vena cava under fluoroscopy and after removing the needle the micropuncture sheath was advanced into the internal jugular vein by Seldinger technique. The wire and inner cannula were removed and a 0.035 J-wire was advanced into the inferior vena cava under direct fluoroscopic visualization. The tract was serially dilated up to a 16 Mal[place] peel-away safety sheath. An exit site on the chest was then chosen and the presumed tunnel was anesthetized with lidocaine. A small stab incision was made on the chest and then the permacath was connected to the tunneler and pulled antegrade through the tunnel. The J-wire and inner cannula from the SafeSheath were removed and the catheter was inserted into the safe sheath. The safe sheath was then peeled away while advancing the catheter. The catheter was positioned under fluoroscopy with the distal tip in the right atrium. Once in adequate position, both ports were aspirated, flushed, and primed with the appropriate amount of heparin. The neck incision was then closed with 4-0 Monocryl in interrupted subcuticular fashion and dressed with Dermabond. The permacath was secured in place with a 2-0 Ethilon in interrupted fashion and dressed with a sterile dressing. Final fluoroscopy demonstrated the catheter was in adequate position with the distal tip in the right atrium and no evidence of pneumothorax. The patient tolerated the procedure well all sponge, needle, and instrument counts were correct. The patient was taken to recovery in stable condition.
[2021-03-16] MEDS ORDERED: ONDANSETRON 4 MG/2 ML INJ ONE (13:00)
[2021-03-16] MEDS ORDERED: HYDROcodone/ACETAMINOPHEN 7.5-325MG TAB PO PRN (14:00)
[2021-03-16 15:38] VITALS: BP 105/48
--- NOTE | 2021-03-16 16:03 | Post Anesthesia Evaluation ---
- Post Anesthesia Evaluation Patient Participated: Yes Airway Patent: Yes Stable Respiratory Function: Yes Nausea/Vomiting: No Temp > 96.8F: Yes Pain Manageable: Yes Adequeate Hydration: Yes Anesthesia Complications: No
== END 2021-03-16 14:30 | disposition home or self-care (01) ==
LOC: OR 06:09
PROVIDERS: ATTEND Surgery Vascular Surgery
DX: T82.898A Other specified complication of vascular prosthetic devices, implants and grafts, initial encounter (principal); I13.2 Hypertensive heart and chronic kidney disease with heart failure and with stage 5 chronic kidney disease, or end stage renal disease; E11.22 Type 2 diabetes mellitus with diabetic chronic kidney disease; N18.6 End stage renal disease; I50.9 Heart failure, unspecified; Z99.2 Dependence on renal dialysis; I25.10 Atherosclerotic heart disease of native coronary artery without angina pectoris; E03.9 Hypothyroidism, unspecified; E11.51 Type 2 diabetes mellitus with diabetic peripheral angiopathy without gangrene; Z87.01 Personal history of pneumonia (recurrent); Z86.73 Personal history of transient ischemic attack (TIA), and cerebral infarction without residual deficits; Z79.84 Long term (current) use of oral hypoglycemic drugs; Z79.899 Other long term (current) drug therapy; Z95.0 Presence of cardiac pacemaker; Z98.890 Other specified postprocedural states; Y83.8 Other surgical procedures as the cause of abnormal reaction of the patient, or of later complication, without mention of misadventure at the time of the procedure
CPT/HCPCS: 36415; 36561; 36830; 37607; 77001; 80048; 82962; 85027; C1750; C1768; J0690; J1100; J1644; J2370; J2405; J2704; J3010; J3490; J7030; J7040; J7050; J2250